=== PATIENT | male | born 1940 | race Caucasian/White ===

== ENCOUNTER → 2016-10-30 | Day surgery (SDC) | payer MEDICARE, BC ==
[~2016-10-30] VITALS: Ht 177.8 cm; Wt 72.5 kg
[~2016-10-30] MED LIST: ACETAMINOPHEN/HYDROcodone 325 MG/5 MG TAB ONE; ACETAMINOPHEN/HYDROcodone 325 MG/5 MG TAB PO ONE; AMPICILLIN-SULBACTAM INJ 3 GM VIAL ONE; ATOR40TA16 PO; BACITRACIN TOP OINT 15 GM TUBE ONE; CILO100T PO; EPINEPHrine HCL (1:1000) 1 MG/ML VIAL ONE; FAMOTIDINE 20 MG/2 ML VIAL ONE; FENO160T PO; ISOS30TA3 PO; LACTATED RINGER'S 1000 ML INJ 1,000 ML ONE; LIDOCAINE 1%/EPINEPHrine 1:200,000 PF SOLN 10 ML VIAL OTHER ONE; METO50TA PO; MIDAZOLAM HCL 2 MG/2 ML VIAL ONE; MORPHINE SULFATE 4 MG/ML INJ ONE; ONDANSETRON HCL 4 MG/2 ML VIAL IV PUSH ONE; PRAS10TA PO; PROPOFOL 200 MG/20 ML AMP IV ONE; SODIUM CHLORIDE 0.9% INJ 100 ML ONE; ZOLP10TA3 PO
[2016-10-30 08:08] VITALS: BP 134/91; PULSE 58; RESP 18; TEMP 97.5; O2SAT 98
[2016-10-30 11:00] VITALS: TEMP 97.5
[2016-10-30 12:25] VITALS: BP 135/80; PULSE 80; RESP 16; O2SAT 98
--- NOTE | 2016-10-30 16:41 | EKG ---
Date Performed: 10/30/2016 Time Performed: 07:55:18 PTAGE: 76 years EKG: Sinus bradycardia Possible inferior infarct - age undetermined Abnormal ECG NO PREVIOUS TRACING DOCTOR: Latonia Gutiérrez Interpretating Date/Time 10/30/2016 16:36:04
--- NOTE | 2016-11-03 22:40 | MP ---
cc: SABINE AYOUB MD DATE OF SURGERY 10/30/[address] Sabine ayoub PREOPERATIVE DIAGNOSIS 1. Chronic right submandibular sialoadenitis. 2. Submandibular sialolithiasis. POSTOPERATIVE DIAGNOSIS 1. Chronic right submandibular sialoadenitis. 2. Submandibular sialolithiasis. OPERATION PERFORMED Excision right submandibular salivary gland INDICATIONS Documented in the history and physical. DESCRIPTION OF OPERATION The patient was taken to OR #2 and placed in the supine position following induction of general anesthesia and intubation using a laryngeal mask apparatus. The patient was positioned for surgery of the right lateral neck. The neck was marked with a 6-cm horizontal line placed approximately two fingerbreadths below the inferior border of the mandible. This was overlying the inferior margin of the submandibular salivary gland. The line was injected with 40 mL of 1% Xylocaine with epinephrine 1:100,000. The knee was then prepped and draped for surgery. The line was incised down to a subplatysmal plane exposing the superficial layer of deep cervical fascia. This fascia was then elevated and bluntly penetrated exposing the inferior border of the submandibular salivary gland. The gland was then dissected free of its fascial attachments on all sides. This was very dense and fibrotic due to longstanding inflammation. During this process, the facial artery and vein were identified in the posterior and superior surfaces of the gland. These were doubly clamped and ligated and dissected free from the body of the gland to allow for further dissection along the superior aspect of the salivary gland. The mylohyoid was dissected free from the anterior surface of the gland and from the duct until the duct was fully mobilized. The lingual nerve was identified and preserved in the neck. The duct was doubly clamped and ligated using a 2-0 suture ligature. The gland was then passed off the field as specimen. This included a stone within the hilum of the duct. The wound was irrigated and suctioned. A 1/4" Mayank drain was placed into the depths of the wound. Closure was begun in layers beginning with the platysma layer which was closed using interrupted 3-0 Vicryl, subcutaneous layer was closed using interrupted 4-0 Vicryl subcutaneous technique and the skin was closed using a running locked suture of 5-0 fast-absorbing plain gut. The [place] drain was sewn in place of the midpoint of the incision with a 3-0 Vicryl. A [place] dressing was applied and the procedure was terminated. The patient was reversed from anesthesia and taken to recovery in good condition. There were no complications. Blood loss was 20 mL. MD ZITA Medina/ /12:26 PM /10:35 PM
== END | disposition home or self-care (01) ==
LOC: PHSDC 06:17
PROVIDERS: ATTEND Otolaryngology
DX: K11.23 Chronic sialoadenitis (principal); K11.5 Sialolithiasis; R94.31 Abnormal electrocardiogram [ECG] [EKG]
CPT/HCPCS: 00100; 42440; 88307; 93005; J0295; J2250; J2270; J2405; J7120; 88305; J0171

== ENCOUNTER → 2017-10-22 | Outpatient (CLI) | payer MEDICARE, BC ==
[2017-10-22 07:50] LABS: BLOOD GAS BASE EXCESS 0.8 mmol/L (-2-2); BLOOD GAS CARBOXYHEMOGLOBIN 5.4 % (0-4); BLOOD GAS HCO3 25 mmol/L (22-26); BLOOD GAS METHEMOGLOBIN 1.1 % (0-2); BLOOD GAS O2 HGB SATURATION 92 % (90-100); BLOOD GAS OXYGEN CONTENT 20.3 Vol % (12.0-20.0); BLOOD GAS PCO2 37 mmHG (38-42); BLOOD GAS PO2 100 mmHG (61-120); BLOOD GAS TOTAL HGB 15.6 G/DL (12.0-16.0); TEMP CORR TO 98.6
[2017-10-22 07:51] LABS: CRITICAL VALUE YES; DRAW SITE RT BRACHIAL; NUMBER OF ARTERIAL PUNCTURES 1; OXYGEN DEVICE RA; STAT NO; ULNAR PULSE Y
== END ==
LOC: PHRSP 07:20
DX: J44.9 Chronic obstructive pulmonary disease, unspecified (principal); R05 Cough; R06.00 Dyspnea, unspecified
CPT/HCPCS: 36600; 82805; 94060; 94726; 94729